=== PATIENT | female | born 1940 | race Caucasian/White ===

== ENCOUNTER 2016-08-14 08:30 | Day surgery (SDC) | payer MEDICARE, OTHER ==
--- NOTE | ~2016-08-14 | OP ---
Record Of Operation [facility] [address] [facility] [place] [address] NAME: LUIS EDEN : 44 STATUS : REG [facility]#: [id number] AGE: 75 ADM/REG DATE : 08/14/16 MR#: [id number] REPORT SERV DATE: 08/14/16 DICTATED BY: KYM SANTANA DATE: 08/14/16 REPORT STATUS : Draft TRANSCRIBED BY: MODL DATE: 08/14/16 DATE OF PROCEDURE: PROCEDURE PERFORMED: Fiberoptic bronchoscopy, bronchoscopy with endobronchial ultrasound and transbronchial needle aspirates of a single lymph node station. INDICATION: For previous lung cancer with an enlarged PET positive lymph node. PREOPERATIVE DIAGNOSIS: Concern for recurrent lung cancer. POSTOPERATIVE DIAGNOSIS: Recurrent local lung cancer. DESCRIPTION OF PROCEDURE: The patient received general anesthesia under the care of Anesthesiology with placement of an LMA artificial airway. The bronchoscope was advanced via the LMA and beyond the vocal cords without difficulty. Topical anesthesia throughout was with lidocaine and the entire bronchial tree was inspected. There were some changes of chronic bronchitis throughout, though no endobronchial lesions and all the individual first order bronchi were widely patent. After airway inspection, we switched the therapeutic scope to the endobronchial ultrasound scope and endobronchial ultrasound surveillance was performed. We identified a large dense level 7 subcarinal lymph node. We performed a series of passes with at least six passes, four slides for direct cytologic examination and four for cell block. 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 The patient had no complications. MARJORIE/ALESHIA Kym Santana M.D. / [id number] CC: Memo Soto M.D.
[~2016-08-14 08:30] MED LIST: ANOROELLIPTA INH; BUPROBAN150 MG PO; COSAMIN DS1 TAB PO; COZAAR100 MG PO; NEUR300 PO; NORV5 PO; PRAVACHOL80 MG PO; SINGULAIR1 PO; ZOL100 PO; [UNRECOGNIZED DRUG - OTHER] PO
[2016-08-14 08:49] LABS: BASOPHILS 0 %; EOSINOPHILS 3.3 %; EOSINOPHILS ABSOLUTE 0.15 10/3/uL (0.0-0.53); HEMATOCRIT 37.3 % (36.0-48.0); HEMOGLOBIN 12.7 g/dL (12.0-16.0); IMMATURE GRANULOCYTES 0.2 %; IMMATURE GRANULOCYTES ABSOLUTE 0.01 10/3/uL (0.0-0.11); LYMPHOCYTES 19.8 %; LYMPHOCYTES ABSOLUTE 0.89 10/3/uL (0.67-4.30); MEAN CORPUSCULAR HEMOGLOB 32.8 pg (26.0-34.0); MEAN CORPUSCULAR VOLUME 96.4 fL (80-100); MEAN PLATELET VOLUME 9.5 fL (9.2-13.0); MONOCYTES 10.2 %; MONOCYTES ABSOLUTE 0.46 10/3/uL (0.21-1.20); NEUTROPHILS 66.5 %; NEUTROPHILS ABSOLUTE 2.99 10/3/uL (2.02-8.40); PLATELET COUNT 136 10/3/uL (150-400); RBC DISTRIBUTION WIDTH 13.2 % (12.0-16.0); RED CELL COUNT 3.87 10/6/uL (4.0-5.6); WHITE BLOOD CELLS 4.5 10/3/uL (4.5-10.5)
[2016-08-14 08:50] LABS: MANUAL DIFF NO %
[2016-08-14 09:06] LABS: BUN (BLOOD UREA NITROGEN) 14 MG/DL (6-23); CALCIUM, SERUM 8.9 MG/DL (8.5-10.4); CHLORIDE, SERUM 108 MMOL/L (96-112); CO2 (CARBON DIOXIDE) 30 MMOL/L (24-34); CREATININE 1.05 MG/DL (0.55-1.02); GFR AFRICAN AMERICAN 61 ML/MIN (>=60); GFR NON AFRICAN AMERICAN 53 ML/MIN (>=60); GLUCOSE, SERUM 89 MG/DL (60-99); POTASSIUM, SERUM 4.1 MMOL/L (3.5-5.3); SODIUM, SERUM 139 MMOL/L (135-148)
[2016-10-17] MEDS ORDERED: OPDIVO IV (21:54)
[2016-10-17] MEDS ORDERED: YERVOY IV (21:55)
[2016-10-17] MEDS ORDERED: COZAAR100 MG PO (21:55)
[2016-10-17] MEDS ORDERED: ZOL100 PO (21:55)
[2016-10-17] MEDS ORDERED: PRAVACHOL80 MG PO (21:55)
[2016-10-17] MEDS ORDERED: WELLSR150 PO (21:56)
[2016-10-17] MEDS ORDERED: NORV5 PO (21:56)
[2016-10-17] MEDS ORDERED: SINGULAIR1 PO (21:56)
[2016-10-17] MEDS ORDERED: ANOROELLIPTA INH (21:56)
[2016-10-17] MEDS ORDERED: NEUR300 PO (21:56)
[2016-10-17] MEDS ORDERED: ADVIL PO (21:57)
[2016-10-17] MEDS ORDERED: ZOFRAN8 PO (21:57)
[2016-10-17] MEDS ORDERED: PROAIRRESP INH (21:57)
== END 2016-08-14 23:59 | disposition home or self-care (01) ==
LOC: DMU 08:30
PROVIDERS: Anesthesiology; Internal Medicine Pulmonary Disease
PROC: 0B9B8ZZ Drainage of Left Lower Lobe Bronchus, Via Natural or Artificial Opening Endoscopic (ICD-10-PCS; principal; 2016-08-14 10:00)
PROC: 0B9J8ZX Drainage of Left Lower Lung Lobe, Via Natural or Artificial Opening Endoscopic, Diagnostic (ICD-10-PCS; 2016-08-14 10:00)
DX: C34.90 Malignant neoplasm of unspecified part of unspecified bronchus or lung (principal); I10 Essential (primary) hypertension; R53.83 Other fatigue; N17.9 Acute kidney failure, unspecified; D75.9 Disease of blood and blood-forming organs, unspecified; Z88.2 Allergy status to sulfonamides
CPT/HCPCS: 80048; 85025; 88172; 88173; 88177; 88305; 88341; 88342; 93005; A9270-GY; C1725; J2370; J2405